=== PATIENT | male | born 1950 | race Caucasian/White ===

== ENCOUNTER 2018-02-21 08:47 | Day surgery (SDC) | payer OTHER ==
[~2018-02-21] VITALS: Ht 165.1 cm; Wt 54.4 kg
[2018-02-21] MEDS ORDERED: LIDOCAINE 2% 100 MG/5 ML UJET TP ONE (09:33)
[2018-02-21] MEDS ORDERED: fentaNYL 0.05 MG/ML VIAL ONE (09:44)
[2018-02-21] MEDS ORDERED: METO50TE2 PO (10:01)
[2018-02-21] MEDS ORDERED: SIMV10TA1 PO (10:01)
[2018-02-21] MEDS ORDERED: ISOS10TA9 PO (10:01)
[2018-02-21] MEDS ORDERED: AMLO10TA PO (10:01)
[2018-02-21] MEDS ORDERED: LOSA100T1 PO (10:01)
[2018-02-21] MEDS ORDERED: CLOP75TA26 PO (10:01)
== END 2018-02-21 11:12 | disposition home or self-care (01) ==
LOC: MDS 08:47 → MMU 08:57 → MDS 11:12
PROVIDERS: ATTEND Internal Medicine Gastroenterology
DX: Z12.11 Encounter for screening for malignant neoplasm of colon (principal); D12.4 Benign neoplasm of descending colon; D12.3 Benign neoplasm of transverse colon; K57.30 Diverticulosis of large intestine without perforation or abscess without bleeding; Z80.0 Family history of malignant neoplasm of digestive organs; I10 Essential (primary) hypertension; E78.5 Hyperlipidemia, unspecified; I21.9 Acute myocardial infarction, unspecified; Z87.891 Personal history of nicotine dependence; Z79.899 Other long term (current) drug therapy
CPT/HCPCS: 45385; J3010; J7030